=== PATIENT | male | born 1945 | race Caucasian/White ===

== ENCOUNTER 2024-03-14 12:21 | Inpatient (IN) | payer MEDICARE, OTHER, SELFPAY ==
[2024-03-14] VITALS (15 sets, daily range): BP systolic 110–158; BP diastolic 75–104; PULSE 65–107; RESP 16–27; TEMP 35.9–36.7; O2SAT 94–98; BMI 29.0
--- NOTE | 2024-03-14 12:40 | EKG_ITS ---
[address] [address] Test Date: 2024-03-14 Pat Name: Landon Cole Department: [facility] Room: Gender: Male [employer] Mixer: KELLIE : 1945 Requested By: Order Number: [id number] Reading MD: Remy David Measurements Intervals [place] Rate: 92 P: OR: QRS: -62 QRSD: 112 T: 33 QT: 392 QTc: 484 Interpretive Statements Atrial fibrillation with premature ventricular or aberrantly conducted complexes Left anterior fascicular block Septal infarct , age undetermined Electronically Signed On 03-15-2024 8:32:00 PDT by Remy David
--- NOTE | 2024-03-14 12:40 | DI.RAD.S_ITS ---
PROCEDURE: XR CHEST 1V INDICATIONS: Shortness of breath TECHNIQUE: One view of the chest was acquired. COMPARISON: None. FINDINGS: Surgical changes and devices: None. Lungs and pleura: Lungs are clear. No pleural effusions or pneumothorax. Mediastinum: Cardiac silhouette is mildly enlarged. Bones and chest wall: No suspicious bony lesions. Overlying soft tissues appear unremarkable. IMPRESSION: Cardiomegaly. No acute cardiopulmonary abnormality is seen. Approved by: Telly Gibson M.D. on 03/14/2024 at 13:02
[2024-03-14 12:55] LABS: Add Manual Diff / Slide Review NO; Basophils Absolute Auto 100 /uL (0-100); Basophils Percent Auto 0.9 % (0-2); Eosinophils Absolute Auto 100 /uL (0-450); Eosinophils Percent Auto 1.8 % (2-4); Hematocrit 46.6 % (41-53); Hemoglobin 15.8 g/dL (13.5-17.5); Lymphocytes Absolute Auto 800 /uL (1100-4500); Lymphocytes Percent Auto 11.7 % (25-40); Mean Corpuscular HGB Conc 33.8 % (30-36); Mean Corpuscular Hemoglobin 32.2 PG (26-34); Mean Corpuscular Volume 95.3 fL (80-100); Monocytes Absolute Auto 700 /uL (0-900); Monocytes Percent Auto 10.9 % (3-14); Neutrophils Absolute Auto 5000 /uL (1500-7000); Neutrophils Percent Auto 74.7 % (50-75); Platelet Count 256 X10^3/uL (150-400); Red Blood Cell Count 4.89 X10^6/uL (4.5-5.9); White Blood Cell Count 6.8 X10^3/uL (4.5-11.0)
[2024-03-14 13:03] LABS: INR 2.2 (0.9-1.3); Prothrombin Time 24.4 SECONDS (9.4-12.5)
[2024-03-14 13:07] LABS: Lactate (Lactic Acid) 2.7 mmol/L (0.7-2.1)
[2024-03-14 13:08] LABS: Alanine Aminotransferase 33 IU/L (<50); Albumin Globulin Ratio 1.2 (1.0-2.8); Alkaline Phosphatase 193 U/L (38-126); Aspartate Aminotransferase 47 IU/L (17-59); BUN Creatinine Ratio 18.7 (6-22); Bilirubin Total 2.9 mg/dL (0.2-1.3); Blood Urea Nitrogen 23 mg/dL (9-20); Calcium 9.1 mg/dL (8.4-10.2); Carbon Dioxide 22 mmol/L (22-32); Chloride 98 mmol/L (98-107); Estimated Glomerular Filt Rate > 60 mL/min (>60); Globulin 3.3 g/dL (1.7-4.1); Glucose 99 mg/dL (80-110); HEMOLYSIS < 15 (0-50); Potassium 4.5 mmol/L (3.4-5.1); Sodium 130 mmol/L (137-145); Total Protein 7.3 g/dL (6.3-8.2)
[2024-03-14 13:20] LABS: NT-proBNP (BNP-Adult 18+) 14800 pg/mL (<450)
[2024-03-14 13:21] LABS: Troponin I 0.127 ng/mL (0.01-0.034)
--- NOTE | 2024-03-14 13:22 | DI.CT.S_ITS ---
PROCEDURE: CT ANGIO CHEST PE PROTOCOL INDICATIONS: swelling legs, sob, + trop TECHNIQUE: After the administration of intravenous contrast, 2 mm thick sections acquired from the pulmonary apices to the posterior costophrenic angles. 3-dimensional maximum intensity projection (MIP) coronal and sagittal reformats were then acquired through the thorax. For radiation dose reduction, the following was used: automated exposure control, adjustment of mA and/or kV according to patient size. COMPARISON: [facility], CR, XR CHEST 1V, 03/14/2024, 12:43. FINDINGS: Image quality: Mildly limited by bolus timing. There is streak artifact seen through the level of the shoulders. Pulmonary arteries: There is poor opacification seen of several lower lobe pulmonary arteries. Lower Neck: No enlarged lymph nodes. Thyroid: The thyroid is not well seen. Axillae: No enlarged lymph nodes. Chest Wall: Unremarkable. Bones: Age-appropriate bony degenerative changes are seen. Mild dextroconvex scoliotic curvature is seen. Lungs and Pleura: There is a moderate right-sided and mild left-sided pleural effusion. Overlying presumed atelectasis can be seen. No pneumothorax. A mild degree of generalized ground-glass opacity can be seen within the lungs. Heart: Heart size is moderately enlarged, with enlargement of the right heart. No pericardial effusion. At least moderate coronary artery calcification can be seen. Thoracic Vessels: No aortic aneurysm. Mediastinum and Arianne: No enlarged lymph nodes. Esophagus: No wall thickening. No hiatal hernia. Upper Abdomen: There is reflux of contrast seen into the inferior vena cava and into the hepatic veins. A mild amount of ascites can be seen within the upper abdomen. The visualized portions of the upper abdominal structures are otherwise unremarkable for imaging technique. IMPRESSION: Poor opacification seen involving several lower lobe pulmonary arteries. This is attributed to flow artifact. Pulmonary embolism is considered to be less likely based upon the imaging appearance. - If clinically appropriate, please consider a repeat exam in 24 hours. Bilateral pleural effusions are seen, right larger than left. A mild degree of generalized ground-glass opacity can be seen. There is also cardiomegaly seen, with reflux of contrast seen into the inferior vena cava and into the hepatic veins. CHF is suspected based upon these imaging findings. A mild amount of upper abdominal ascites can be seen. Additional findings: Coronary artery calcification Dictated by: Wellington Feliciano M.D. on 03/14/2024 at 13:14 Approved by: Wellington Feliciano M.D. on 03/14/2024 at 13:19
[2024-03-14 14:12] LABS: Urine Volume 10mL (spun)
[2024-03-14 14:18] LABS: Bacteria Urine None Seen; Culture Indicated Urine Cult Not Indicated; RBC Urine None Seen (0-5/HPF); Squamous Epithelial Cell Urine None Seen (0-5/HPF); WBC Urine None Seen (0-5/HPF)
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
[2024-03-14 14:26] LABS: Reflexed Lactate in 2 Hours Y
[2024-03-14 14:55] LABS: Lactate 2HR (Lactic Acid Rflx) 2.3 mmol/L (0.7-2.1)
--- NOTE | 2024-03-14 14:55 | DI.ECHO.S_ITS ---
[facility] : : [address] : : [place] : : [id number] : : Phone: [phone] Echocardiogram Report + + :Name: FRANCISCA DOBBS Study Date: 03/14/2024 Height: 71 in : :Hospital ReadingLocation: Weight: 202 lb : : Gender: Male BSA: 2.1 m2 : :: 1945 Age: 78 yrs BP: 158/75 mmHg: :Reason For Study: CONGESTIVE HEART FAILURE, MURMUR : :Ordering Physician: AYLA, : :MARINA Performed By: Estela Faye : :Referring: MARINA AGUILA : + + Interpretation Summary There is mild-moderate concentric left ventricular hypertrophy. The ejection fraction is estimated to be 10-15%. Diastolic function could not be accurately assessed due to atrial fibrillation. The left atrium is moderately dilated. The right ventricle is moderately dilated. Right ventricular systolic function is moderately reduced. The right atrium is severely dilated. There is moderate mitral regurgitation. There is low-flow, low gradient severe aortic stenosis. There is mild aortic regurgitation. The right ventricular systolic pressure is estimated to be at least 50 mmHg based on an estimated right atrial pressure of 15 mm Hg. There is a moderate left-sided pleural effusion. Procedure: A two-dimensional transthoracic echocardiogram with color flow and Doppler was performed. The study quality was technically adequate. There is no prior echocardiogram noted for this patient. The patient was in atrial fibrillation with heart rates between 75-100 bpm during the exam. Left Ventricle: The left ventricle is normal in size. There is mild-moderate concentric left ventricular hypertrophy. The ejection fraction is estimated to be 10-15%. Diastolic function could not be accurately assessed due to atrial fibrillation. Right Ventricle: The right ventricle is moderately dilated. A moderator band is seen in the right ventricle. Right ventricular systolic function is moderately reduced. Atria: The left atrium is moderately dilated. The right atrium is severely dilated. There is no Doppler evidence for an interatrial shunt. Mitral Valve: The mitral valve leaflets appear moderately thickened, but open well. There is moderate mitral regurgitation. Aortic Valve: The aortic valve is severely calcified. There is severely reduced leaflet mobility. The peak aortic velocity is 3.3 m/sec. The aortic valve mean gradient is 25 mmHg. The dimensionless index is 0.17. The calculated aortic valve area is 0.69 cm2. There is severe aortic stenosis. There is mild aortic regurgitation. Tricuspid Valve: Tricuspid leaflets are thickened. There is moderate tricuspid regurgitation. The right ventricular systolic pressure is estimated to be at least 50 mmHg based on an estimated right atrial pressure of 15 mm Hg. Pulmonic Valve: The pulmonic valve leaflets are thin and pliable; valve motion is normal. There is a trace or physiologic amount of pulmonic regurgitation. Great Vessels: The aortic root is normal size. The dimensions of the ascending aorta are normal. The IVC is dilated (diameter is greater than 2.1 cm) and it collapses less than 50% with a sniff. This suggests a high right atrial pressure of 15 mm Hg. Pericardium/ Pleura There is no pericardial effusion. There is a moderate left-sided pleural effusion. MMode/2D Measurements & Calculations LVIDd: 5.3 cm LVOT diam: 2.4 cm LVIDs: 4.8 cm Ao root diam: 3.4 cm FS: 8.9 % asc Aorta Diam: 3.7 cm EPSS: 0.88 cm Ao Arch Diam (Prox Trans): 2.8 cm IVSd: 1.2 cm LVPWd: 1.3 cm LV delgado. diameter/BSA (cm/m^2): 2.5 LV sys. diameter/BSA (cm/m^2): 2.3 LA A2 area: 30.7 cm2 RA long axis: 6.4 cm LA A4 area: 23.6 cm2 RA area: 26.6 cm2 LA length (vol): 6.6 cm RA vol: 94.2 ml LA vol: 92.8 ml RA : 44.5 ml/m2 LA vol index: 43.8 ml/m2 IVC diam: 3.1 cm RVD1 (basal): 5.1 cm RVD2 (mid): 3.9 cm TAPSE: 1.7 cm Doppler Measurements & Calculations Ao V2 max: 326.3 cm/sec LVOT Max Raji: 48.9 cm/sec Ao V2 mean: 214.6 cm/sec LV V1 max P.96 mmHg Ao max P.6 mmHg LV V1 VTI: 9.3 cm Ao mean P.6 mmHg KALEB(I,D): 0.81 cm2 Ao V2 VTI: 52.8 cm KALEB(V,D): 0.69 cm2 sev ratio: 0.18 KALEB indexed to BSA (cm^2/m^2): 0.38 AI P1/2t: 832.0 msec AI dec slope: 152.1 cm/sec2 MV E max raji: 64.9 cm/sec TR max raji: 297.9 cm/sec Med Peak E' Raji: 5.4 cm/sec TR max P.5 mmHg E/E' med: 12.1 PA V2 max: 64.8 cm/sec MV dec time: 0.14 sec PA V2 mean: 41.6 cm/sec MR ERO: 0.29 cm2 PA mean P.79 mmHg PA pr(Accel): 48.2 mmHg MR PISA: 5.2 cm2 SV(LVOT): 42.9 ml MR flow rate: 142.1 cm3/sec MR PISA radius: 0.91 cm Reading Physician:05:16 PM
[2024-03-14] MEDS: FUROSEMIDE 40 MG/4 ML VIAL IV (15:09)
--- NOTE | 2024-03-14 16:31 | P.HP_ITS ---
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 He flew to [place] about a month ago in his had leg edema since that time which is progressing. He has also had progressive dyspnea for the past several weeks. He has been given 2 courses of diuretics with minimal improvement. He denies any chest pain or known heart issues. He does try to avoid doctors as much as possible. His primary is Dr. Madrid, in [place]. He denies any chest pain recently. He was had some orthopnea. In the emergency room, chest x-ray indicated pulmonary edema and he was given Lasix and had a very dramatic diuresis and improvement of his symptoms. Echo reveals an EF of 10-15%, no previous echoes are available. He was moderate concentric LVH as well. His right ventricular systolic function is also moderately reduced and he was [id number] regurgitation and mild aortic regurgitation. [facility] Social History household members: family Smoking Status: Never smoker alcohol intake: never Meds Home Medications and Allergies Allergies Allergy/AdvReac Type Severity Reaction Status Date / Time No Known Drug Allergies Allergy Verified 03/14/24 12:37 Review of Systems Review of Systems Narrative: All else reviewed and otherwise unremarkable except as noted in the history and physical. Exam Vital Signs (past 8 hours): - 03/14/24 12:37 03/14/24 13:00 03/14/24 13:06 Temperature 98.1 F Pulse Rate 107 H 93 H 94 H Respiratory Rate 22 16 25 H Blood Pressure 142/102 H 153/99 H Pulse Oximetry 94 97 97 Oxygen Delivery Method Room Air Room Air 03/14/24 13:30 03/14/24 13:30 03/14/24 13:59 Temperature Pulse Rate 81 104 H Respiratory Rate 16 23 Blood Pressure 145/96 H Pulse Oximetry 97 96 Oxygen Delivery Method 03/14/24 13:59 03/14/24 14:00 03/14/24 14:00 Temperature Pulse Rate 99 H Respiratory Rate 27 H Blood Pressure 147/104 H 143/101 H Pulse Oximetry 96 Oxygen Delivery Method 03/14/24 14:30 10/30/24 14:30 03/14/24 15:00 Temperature Pulse Rate 88 91 H Respiratory Rate 21 23 Blood Pressure 149/100 H Pulse Oximetry 96 97 Oxygen Delivery Method 03/14/24 15:00 03/14/24 15:23 03/14/24 15:23 Temperature Pulse Rate 103 H Respiratory Rate 24 Blood Pressure 140/94 H 158/75 H Pulse Oximetry 97 Oxygen Delivery Method 03/14/24 15:30 03/14/24 15:30 Temperature Pulse Rate 89 Respiratory Rate 17 Blood Pressure 151/90 H Pulse Oximetry 96 Oxygen Delivery Method Room Air Oxygen Delivery Method Room Air Narrative Exam Narrative: NAD, alert and oriented, fluent speech, calm. Normocephalic skull, EOMI, anicteric sclera, symmetric pupils. Oropharynx unremarkable, no droop. Neck supple, midline trachea, no adenopathy. Lungs with basilar rales, normal rate and effort. Heart regular, no murmur gallop or rub. Abdomen is soft, non distended and non tender. Extremities: Gross bilateral edema Skin is free of rash or lesions. Joints are not swollen or deformed. Judgment appears to be normal. Objective ECG Impression: Atrial fibrillation with premature ventricular or aberrantly conducted complexes Left anterior fascicular block Septal infarct , age undetermined Imaging CT scan - chest: Radiologist's impression: Poor opacification seen involving several lower lobe pulmonary arteries. This is attributed to flow artifact. Pulmonary embolism is considered to be less likely based upon the imaging appearance. - If clinically appropriate, please consider a repeat exam in 24 hours. Bilateral pleural effusions are seen, right larger than left. A mild degree of generalized ground-glass opacity can be seen. There is also cardiomegaly seen, with reflux of contrast seen into the inferior vena cava and into the hepatic veins. CHF is suspected based upon these imaging findings. A mild amount of upper abdominal ascites can be seen. Additional findings: Coronary artery calcification Chest x-ray: Radiologist's impression: Cardiomegaly. No acute cardiopulmonary abnormality is seen. Echo: Radiologist's impression: There is mild-moderate concentric left ventricular hypertrophy. The ejection fraction is estimated to be 10-15%. Diastolic function could not be accurately assessed due to atrial fibrillation. The left atrium is moderately dilated. The right ventricle is moderately dilated. Right ventricular systolic function is moderately reduced. The right atrium is severely dilated. There is moderate mitral regurgitation. There is low-flow, low gradient severe aortic stenosis. There is mild aortic regurgitation. The right ventricular systolic pressure is estimated to be at least 50 mmHg based on an estimated right atrial pressure of 15 mm Hg. There is a moderate left-sided pleural effusion. Labs 03/14/24 12:43 03/14/24 12:43 Labs: Laboratory Results - last 24 hr 03/14/24 03/14/24 03/14/24 12:43 13:55 14:33 WBC 6.8 RBC 4.89 Hgb 15.8 Hct 46.6 MCV 95.3 MCH 32.2 MCHC 33.8 RDW 17.0 H Plt Count 256 Neut % (Auto) 74.7 Lymph % (Auto) 11.7 L [place] % (Auto) 10.9 Eos % (Auto) 1.8 L Baso % (Auto) 0.9 Neut # (Auto) 5000 Lymph # (Auto) 800 L [place] # (Auto) 700 Eos # (Auto) 100 Baso # (Auto) 100 PT 24.4 H INR 2.2 H Sodium 130 L Potassium 4.5 Chloride 98 Carbon Dioxide 22 BUN 23 H Creatinine 1.23 Estimated GFR > 60 BUN/Creatinine Ratio 18.7 Glucose 99 Lactate 2.7 H 2.3 H Calcium 9.1 Total Bilirubin 2.9 H AST 47 ALT 33 Alkaline Phosphatase 193 H Troponin I 0.127 H* NT-Pro-B Natriuret Pep 92122 H Total Protein 7.3 Albumin 4.0 Globulin 3.3 Albumin/Globulin Ratio 1.2 Urine RBC None seen Urine WBC None seen Ur Squamous Epith Cells None seen Urine Bacteria None seen Ur Culture Indicated? Cult not indicated Vol Urine Centrifuged 10ml (spun) 03/14/24 14:34 WBC RBC Hgb Hct MCV MCH MCHC RDW Plt Count Neut % (Auto) Lymph % (Auto) [place] % (Auto) Eos % (Auto) Baso % (Auto) Neut # (Auto) Lymph # (Auto) [place] # (Auto) Eos # (Auto) Baso # (Auto) PT INR Sodium Potassium Chloride Carbon Dioxide BUN Creatinine Estimated GFR BUN/Creatinine Ratio Glucose Lactate Calcium Total Bilirubin AST ALT Alkaline Phosphatase Troponin I 0.120 H NT-Pro-B Natriuret Pep Total Protein Albumin Globulin Albumin/Globulin Ratio Urine RBC Urine WBC Ur Squamous Epith Cells Urine Bacteria Ur Culture Indicated? Vol Urine Centrifuged Assessment & Plan Assessment & Plan narrative: 1. Acute systolic heart failure with a very depressed EF of 10-15%, present on admission and active. 2. Atrial fibrillation, present on admission and active. 3. Autoimmune dermatitis, present on admission and active. 4. Chronic immune suppression, present on admission and active. 5. Chronic anticoagulation, present on admission and active. PLAN: -diuresis -telemetry -rate control -ECHO to assess LVEF -trend troponins -discuss with Cardiology -we will start low dose of beta blockade tomorrow as well as lisinopril. Full code MADELIN: 03/16 Inpatient status, anticipate a 2 [place] hospital stay. Time-Based Coding :: 35 min spent with patient and on the chart (including review of chart, obtaining history, exam, reviewing outside data, placing orders, documenting exam and treatment plan, and counseling patient) on 03/14. Quality MIPS - Admit The patient?s Advance Care plan is not present because I confirmed today that the patient does not wish or was not able to name a surrogate decision maker or provide an Advance Care Plan.: Yes MIPS - Meds 'Current medications' to include all prescriptions, [id number] products, herbals, cannabis/cannabidiol products, and vitamin/mineral/dietary (nutritional) supplements. I have utilized all available resources to obtain, update, or review the patient?s current medications. [If Yes, STOP here]: Yes
--- NOTE | 2024-03-14 18:49 | PC.NURSE ---
Pt to room 219 from ER. Pt is very hard of hearing and his son is taking his hearing aids home to charge them. Pt denies pain, nausea, chest pain or shortness of breath. Pt states he is already feeling much better than he has for the past several weeks. Pt oriented to room, call light, bed controls and tv controls. Pt up to bathroom to void-steady on his feet and has no history of falls and uses no cane or walker. Pt agrees to call for assistance as needed and to not get up without calling. Pt agrees.
[2024-03-14] MEDS: APIXABAN 5 MG TABLET PO (20:30)
[2024-03-14 20:43] LABS: Troponin I 0.126 ng/mL (0.01-0.034)
[2024-03-15] VITALS (7 sets, daily range): BP systolic 107–139; BP diastolic 67–93; PULSE 53–96; RESP 16–20; TEMP 36.4–36.8; O2SAT 93–97
[2024-03-15 05:10] LABS: Hematocrit 40.1 % (41-53); Hemoglobin 13.7 g/dL (13.5-17.5); Mean Corpuscular Hemoglobin 32.5 PG (26-34); Mean Corpuscular Volume 95.6 fL (80-100); Platelet Count 225 X10^3/uL (150-400); Red Cell Distribution Width 17.2 % (11.6-14.8)
[2024-03-15 05:22] LABS: BUN Creatinine Ratio 18.7 (6-22); Blood Urea Nitrogen 25 mg/dL (9-20); Calcium 8.8 mg/dL (8.4-10.2); Carbon Dioxide 26 mmol/L (22-32); Chloride 99 mmol/L (98-107); Estimated Glomerular Filt Rate 55 mL/min (>60); Glucose 96 mg/dL (80-110); HEMOLYSIS < 15 (0-50); Potassium 4.8 mmol/L (3.4-5.1); Sodium 130 mmol/L (137-145)
[2024-03-15] MEDS: FUROSEMIDE 40 MG/4 ML VIAL IV ×2 (05:45→17:15)
--- NOTE | 2024-03-15 07:26 | PM.PN.1 ---
Subjective Subjective Interval history: Summary: The patient was a 78-year-old male with a history of chronic atrial fibrillation on Eliquis and a chronic heart murmur. He also has an autoimmune skin disorder. He presents with progressive leg edema and dyspnea for 4 weeks. Echo on the day of admission revealed a global hypokinesis with LVH and an EF of 10-15%. No recent echos are available. He was seen by a take out waiter [facility]. Subjective: Less short of breath, less edema. He still does have a lot of edema. No chest pain. He did have elevated troponins, minimally overnight. Exam Vital Signs (past 8 hours): - 03/15/24 00:09 03/15/24 04:28 Temperature 97.5 F L 98.3 F Pulse Rate 88 53 L Respiratory Rate 16 16 Blood Pressure 131/85 139/93 H Pulse Oximetry 95 93 Oxygen Delivery Method Room Air Narrative Exam Narrative: NAD, alert and oriented. Fluent speech. Lungs are clear, normal rate and effort. Heart is regular, no murmur gallop or rub. Abdomen is soft, non distended. Extremities are free of edema. Objective ECG Impression: Atrial fibrillation with premature ventricular or aberrantly conducted complexes Left anterior fascicular block Septal infarct , age undetermined Imaging Multiple studies:: Radiologist's impression: Chest x-ray: Radiologist's impression: Cardiomegaly. No acute cardiopulmonary abnormality is seen. Echo: Radiologist's impression: There is mild-moderate concentric left ventricular hypertrophy. The ejection fraction is estimated to be 10-15%. Diastolic function could not be accurately assessed due to atrial fibrillation. The left atrium is moderately dilated. The right ventricle is moderately dilated. Right ventricular systolic function is moderately reduced. The right atrium is severely dilated. There is moderate mitral regurgitation. There is low-flow, low gradient severe aortic stenosis. There is mild aortic regurgitation. The right ventricular systolic pressure is estimated to be at least 50 mmHg based on an estimated right atrial pressure of 15 mm Hg. There is a moderate left-sided pleural effusion. Labs 03/15/24 04:54 03/15/24 04:54 Labs: Laboratory Results - last 24 hr 03/14/24 03/14/24 03/14/24 12:43 13:55 14:33 WBC 6.8 RBC 4.89 Hgb 15.8 Hct 46.6 MCV 95.3 MCH 32.2 MCHC 33.8 RDW 17.0 H Plt Count 256 Neut % (Auto) 74.7 Lymph % (Auto) 11.7 L [place] % (Auto) 10.9 Eos % (Auto) 1.8 L Baso % (Auto) 0.9 Neut # (Auto) 5000 Lymph # (Auto) 800 L [place] # (Auto) 700 Eos # (Auto) 100 Baso # (Auto) 100 PT 24.4 H INR 2.2 H Sodium 130 L Potassium 4.5 Chloride 98 Carbon Dioxide 22 BUN 23 H Creatinine 1.23 Estimated GFR > 60 BUN/Creatinine Ratio 18.7 Glucose 99 Lactate 2.7 H 2.3 H Calcium 9.1 Total Bilirubin 2.9 H AST 47 ALT 33 Alkaline Phosphatase 193 H Troponin I 0.127 H* NT-Pro-B Natriuret Pep 16228 H Total Protein 7.3 Albumin 4.0 Globulin 3.3 Albumin/Globulin Ratio 1.2 Urine RBC None seen Urine WBC None seen Ur Squamous Epith Cells None seen Urine Bacteria None seen Ur Culture Indicated? Cult not indicated Vol Urine Centrifuged 10ml (spun) 03/14/24 03/14/24 03/15/24 14:34 20:00 04:54 WBC 7.0 RBC 4.20 L Hgb 13.7 Hct 40.1 L MCV 95.6 MCH 32.5 MCHC 34.0 RDW 17.2 H Plt Count 225 Neut % (Auto) Lymph % (Auto) [place] % (Auto) Eos % (Auto) Baso % (Auto) Neut # (Auto) Lymph # (Auto) [place] # (Auto) Eos # (Auto) Baso # (Auto) PT INR Sodium 130 L Potassium 4.8 Chloride 99 Carbon Dioxide 26 BUN 25 H Creatinine 1.34 H Estimated GFR 55 L BUN/Creatinine Ratio 18.7 Glucose 96 Lactate Calcium 8.8 Total Bilirubin AST ALT Alkaline Phosphatase Troponin I 0.120 H 0.126 H* NT-Pro-B Natriuret Pep Total Protein Albumin Globulin Albumin/Globulin Ratio Urine RBC Urine WBC Ur Squamous Epith Cells Urine Bacteria Ur Culture Indicated? Vol Urine Centrifuged [facility] Social History household members: family Smoking Status: Never smoker alcohol intake: never Assessment & Plan Assessment & Plan narrative: 1. Acute systolic heart failure with a very depressed EF of 10-15%, present on admission and active. 2. Dilated cardiomyopathy of unclear cause, present on admission and active. Could be ischemic. 3. Elevated troponin, present on admission and active. 4. Atrial fibrillation, present on admission and active. 5. Autoimmune dermatitis, present on admission and active. 6. Chronic immune suppression, present on admission and active. 7. Chronic anticoagulation, present on admission and active. PLAN: -diuresis -telemetry -rate control -trend troponins -discuss with Cardiology (More Luna). Appt with Dr Luna 04/09. -we will start low dose of beta blockade tomorrow as well as lisinopril. -I recommend a LifeVest for protection against cardiac arrest given his extremely low ejection fraction and high risk for ventricular arrhythmia or cardiac arrest. Patient agrees with this measure. Also discussed with take out waiter. Full code MADELIN: 03/16 Inpatient status, anticipate a 2 [place] hospital stay. Time-Based Coding :: [TOTAL MINUTES] spent with patient and on the chart (including review of chart, obtaining history, exam, reviewing outside data, placing orders, documenting exam and treatment plan, and counseling patient) on [DATE].
[2024-03-15] MEDS: APIXABAN 5 MG TABLET PO ×2 (08:16→21:35)
--- NOTE | 2024-03-15 08:36 | PT-IP ANOTE ---
PT consult received. PT reviewed chart and spoke with MD and checked on pt. Pt eating breakfast. He is very [place]. Will check back for PT assessment.
[2024-03-15 10:53] LABS: Troponin I 0.147 ng/mL (0.01-0.034)
--- NOTE | 2024-03-15 13:27 | PT.IIE ---
Current Diagnoses Acute systolic (congestive) heart failure (03/14/24) Physical Therapy Inpatient Evaluation/Re-Eval M1 PT/OT-IP Prior Functional Status Start: 03/15/24 08:26 Freq: NEEDED Status: Active Protocol: Document 03/15/24 12:52 MB (Rec: 03/15/24 13:27 [id number]) Medical Review Prior Functional Status Medical History Reviewed Yes Communication Unsure baseline diet and pt coughs after finishing lunch Mobility and Gait I Activities of Daily Living and IADL's I, drives Social History Household Members family Living Arrangements House Number of Floors (Floors) One Floor Number of Stairs To Enter/Railing? 1 step and no rail to enter Home Environment Standard Height Toilet,High Toilet,Walk in Shower,Tub/ Shower Home Equipment Hand Held Shower,Grab Bars In Shower Employment Status Retired M2 PT-IP Current Condition Start: 03/15/24 08:26 Freq: NEEDED Status: Active Protocol: Document 03/15/24 12:52 MB (Rec: 03/15/24 13:27 [id number]) Physical Therapy Current Condition Current Condition Evaluation Date 03/15/24 Treatment Diagnosis SOB, swelling LEs M3 PT-IP Subjective Start: 03/15/24 08:26 Freq: NEEDED Status: Active Protocol: Document 03/15/24 12:52 MB (Rec: 03/15/24 13:27 [id number]) Subjective Physical Therapy Visit Type Type Initial Evaluation Visit Start Time 12:52 Visit Stop Time 13:17 Number of PATTERN PAINTER Visits 0 Physical Therapy Visit Comments Patient Comments Do you work for the [employer]? I don't want the [employer] to come to my house ! Are you going to throw those notes out? Pt often angry and somewhat hostile to PT and con't ask questions about where PT works and what PT is doing with information and son also is questioning PT. giggles throughout interview. PT con't to educate pt and family that PT works for [employer] and is performing PT assessment to determine discharge recommendations. Pt refuses gait belt for mobility. Therapy Pain Assessment Pain When Pain Assessed At Rest Pain Present Pain Present Denied Pain M4 PT-IP Mobility and Gait Start: 03/15/24 08:26 Freq: NEEDED Status: Active Protocol: Document 03/15/24 12:52 MB (Rec: 10/31/24 13:27 MB [id number]) PT-Bed Mobility Assessment Supine to Sit Supine to Sit Standby Assistance,1 Person Assistance,Head of Bed Elevated Sit to Supine Sit to Supine Standby Assistance,1 Person Assistance,Head of Bed Elevated,Bedrails Scooting Scooting to Edge of Bed Standby Assistance PT-Transfer Assessment Sit to and From Stand Sit to and from Stand Standby Assistance Equipment Transfer Assistive Device None Orthotic/Prosthetic Devices or Brace: No Transfers Transfer Destination Bed,Toilet Transfer Technique Ambulation Transfer Ability Level of Assist Standby Assistance Comments Mobility Comments BP and HR in RUE: supine with HOB increased in bed: 133/85, 83; standing 125/88, 90. Pt states he never gets light- headed. Gait Assessment Gait Gait Assistance Required: Standby Assistance Distance (Feet) 100 Able to Maintain Weight Bearing Status Yes During Gait Assistive Devices Assistive Device None Orthotic/Prosthetic Devices or Brace: No Gait Deviations General Gait Pattern Wide Based Gait Factors Limiting Gait Function Factors Limiting Gait Function Poor Safety Awareness Comments Gait Comments Pt with mild ROBLES per observation that he denies when PT mentions Stair Climbing Assessment Evaluation Level of Assist On Stairs Standby Assistance Devices Stair Climbing Assistive Devices Left Railing Technique/Endurance Stair Climbing Direction Ascend Stair Climbing Technique Step to Step Number of Steps Climbed 1 Query Text: Stair Climbing Set # Repetitions (reps) 1 PT-Balance Assessment Sitting Balance and Reactions Static Sitting Balance Ability Good Dynamic Sitting Balance Ability Good Standing Balance and Reactions Static Standing Balance Ability Good Dynamic Standing Balance Ability Fair Device Used None M5 PT-IP Objective Assessments Start: 03/15/24 08:26 Freq: NEEDED Status: Active Protocol: Document 03/15/24 12:52 MB (Rec: 03/15/24 13:27 MB [id number]) Orientation Orientation/Cognition Level of Alertness Alert Orientation Name,Age,Birthday,Month,Date, Year,Day of Week,Place, Situation Language Function Ability Hard of Hearing Safety Awareness Decreased Safety Awareness Memory Description No Deficits Noted Gross Range of Motion Upper Extremity ROM Assessment Within Functional Limits Lower Extremity ROM Assessment Within Functional Limits Strength Upper Extremity Strength Assessment Within Functional Limits Lower Extremity Strength Assessment Within Functional Limits Comments Strength Comments Pt does not tolerate ROM, MMT, sensory or coordination testing. He presents with B LE edema M7 PT-IP Assessment and Plan Start: 03/15/24 08:26 Freq: NEEDED Status: Active Protocol: Document 03/15/24 12:52 MB (Rec: 03/15/24 13:27 MB [id number]) PT Summary Assessment and Plan Potential Rehabilitation Potential Poor Status of Condition at Evaluation Evolving Summary Impairments Activity Tolerance Assessment Summary Pt is a 78 y/o male adm with SOB and LE edema. He is [place] and quite hostile towards PT and family is also not understanding that PT works for [employer] and they are not receptive to PT educating them about PT role, assessment and recommendations . Pt states many times that he does not want the government involved, is worried where PT is putting notes about DME and PLOF. He is adamant about PT not touching him or using gait belt. also sits nearby and has some giggling. Pt is SBA to superv level for gait to BR, in hallway and one step mobility. Will d/c PT. Recommend not ordering further therapies in order to respect pt and family's concerns and wishes. Of note, pt does cough often after eating lunch. Recommend d/c home with family . Frequency of Treatment Frequency Of Treatment Discharge Discharge Recommendations PT Discharge Recommendations Home with Assistance Transportation Needs at Discharge Private Vehicle
--- NOTE | 2024-03-15 15:18 | CM.DANOTE ---
DCP Assessment Note Pt is a 78yo [place] with CHF. PCP Dr. Madrid Payer Medicare and [employer] dimensions ROTARY VENEER MACHINE OPERATOR reviewed EMR. per hospitalist in morning rounds, anticipate dc tomorrow with lifevest. Per provider PN, cardiology f/u already scheduled with Dr. Luna on 04/09. discharged PT due to pt not wanting to work with PT, see PT note for more. ROTARY VENEER MACHINE OPERATOR met with pt, spouse, and son Slade in room and introduced self and role. pt reports living with spouse in [place], indep at baseline. ROTARY VENEER MACHINE OPERATOR answered spouse's questions to best of ability. pt/spouse deny any CM/DCP needs at this time. P: home with family to transport at dc. f/u with OP cardiology/PCP. no identified barriers to safe dc home at this time. CM team will continue to follow as needed MARIO ALBERTO Griffiths Discharge Planning/Care Management CM Discharge Assessment Start: 03/15/24 15:17 Freq: Status: Active Protocol: Document 03/15/24 15:17 SL (Rec: 03/15/24 15:18 [id number]) Discharge Planning Assessment Assigned Ax Survey Worker MARIO ALBERTO Cronin DPOA/Assigned Designee Name carlos Ann Contact Information [phone] Advance Directives? No History Provided By Patient Prior Living Arrangements House Household Members family Type of transporation used prior to Drives own vehicle admit Independent with ADL's Yes Is patient alert and oriented? Yes Discharge Plan Home Transportation Arrangement family in POV Referrals Initiated None needed Whiteboard Updated in Patient Room with Yes name and ext. # of Ax Survey Worker Review Status In Process Please Provide Date Initial DC 03/15/24 Assessment Was Performed Next Review Type Continued Stay Review
[2024-03-16 03:00] VITALS: BP 111/80; PULSE 84; RESP 18; TEMP 36.2; O2SAT 98
[2024-03-16 05:04] LABS: Hematocrit 42.2 % (41-53); Hemoglobin 14.2 g/dL (13.5-17.5); Mean Corpuscular HGB Conc 33.7 % (30-36); Platelet Count 237 X10^3/uL (150-400); Red Blood Cell Count 4.44 X10^6/uL (4.5-5.9); Red Cell Distribution Width 17.2 % (11.6-14.8); White Blood Cell Count 7.4 X10^3/uL (4.5-11.0)
[2024-03-16 05:20] LABS: BUN Creatinine Ratio 22.1 (6-22); Blood Urea Nitrogen 29 mg/dL (9-20); Calcium 8.9 mg/dL (8.4-10.2); Carbon Dioxide 24 mmol/L (22-32); Chloride 100 mmol/L (98-107); Estimated Glomerular Filt Rate 56 mL/min (>60); Glucose 96 mg/dL (80-110); HEMOLYSIS < 15 (0-50); Potassium 4.1 mmol/L (3.4-5.1); Sodium 133 mmol/L (137-145)
[2024-03-16] MEDS: FUROSEMIDE 40 MG/4 ML VIAL IV (05:45)
[2024-03-16 08:00] VITALS: BP 144/95; PULSE 64; RESP 17; TEMP 36.1; O2SAT 98
[2024-03-16] MEDS: APIXABAN 5 MG TABLET PO (09:44)
[2024-03-16] MEDS: FOLIC ACID 1 MG TABLET PO (09:44)
--- NOTE | 2024-03-16 11:43 | CM.DPNOTE ---
DCP Note DECAY CONTROL OPERATOR reviewed EMR. Per hospitalist in morning rounds, dc today with lifevest. Per RN lead Stephanie, lifevests are coordinated through hospitalist/RN coordinator and they are typically done very quickly. Per chart/morning rounds, no new CM needs identified at this time. P: home with family to transport at dc with lifevest. f/u with OP cardiology(already scheduled)/PCP. no identified barriers to safe dc home at this time. CM team will continue to follow as needed MARIO ALBERTO Griffiths
--- NOTE | 2024-03-16 14:05 | P.DS_ITS ---
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 He flew to [place] about a month ago in his had leg edema since that time which is progressing. He has also had progressive dyspnea for the past several weeks. He has been given 2 courses of diuretics with minimal improvement. He denies any chest pain or known heart issues. He does try to avoid doctors as much as possible. His primary is Dr. Madrid, in [place]. He denies any chest pain recently. He was had some orthopnea. In the emergency room, chest x-ray indicated pulmonary edema and he was given Lasix and had a very dramatic diuresis and improvement of his symptoms. Echo reveals an EF of 10-15%, no previous echoes are available. He was moderate concentric LVH as well. His right ventricular systolic function is also moderately reduced and he was [id number]-jucvoicz regurgitation and mild aortic regurgitation. Discharge Providers Provider Date of admission: 03/14/24 16:07 Discharge Date: 03/16/24 Consults: 03/14/24 16:19 Consult to Physical Therapy Evaluate & Treat Comment: Physician Instructions: Evaluate and Treat Discharge provider: Peterson Finley MD Summary Hospital Course Discharge Diagnosis: 1. Acute systolic heart failure with a very depressed EF of 10-15% 2. Dilated cardiomyopathy of unclear cause, possibly ischemic. 3. Elevated troponin, present on admission. 4. Atrial fibrillation. 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 7. Chronic anticoagulation. Hospital Course: The patient was admitted and underwent intravenous diuresis with IV furosemide, reporting significant improvement in breathing and lower extremity edema within the 1st day of admission. Echocardiography results reviewed demonstrating severe dilated cardiomyopathy. He was offered a defibrillator life vest during his hospitalization given his high risk of sudden due to his underlying cardiomyopathy, with the diesel maintenance technician presenting and offering to supply the vest prior to discharge. The patient declined, stating that he would not wear the vast, as he did not feel he would tolerate it, and also fill jesenia velarde did not wish to wear this device. However he did express that he would wish full treatment in the event of cardiac arrest, simply not to this degree. He states interest in outpatient cardiology follow-up as had been arranged prior to admission. He was discharged on oral furosemide with additional medications deferred given relative resting bradycardia and the patient's decision clinician to additional therapies at this time. He wishes to consider and discuss in outpatient primary care follow-up and Cardiology consultation with Dr. Landon Luna. Status at Discharge Cognitive/behavioral status at discharge: oriented Functional status at discharge: independent ambulation Overall status at discharge: patient is progressing back to baseline Exam Vital Signs (past 8 hours): - 03/16/24 07:50 03/16/24 08:00 Temperature 97.0 F L Pulse Rate 64 Respiratory Rate 17 Blood Pressure 144/95 H Pulse Oximetry 98 Oxygen Delivery Method Room Air Oxygen Flow Rate 0 Oxygen Delivery Method Room Air Oxygen Flow Rate 0 Narrative Exam Narrative: NAD, alert and oriented. Fluent speech. Lungs are clear, normal rate and effort. Heart is regular, no murmur gallop or rub. Abdomen is soft, non distended. Extremities are free of edema. Objective Imaging +: Radiologist's impression: 1. Chest x-ray 03/14/2024: Cardiomegaly. No acute cardiopulmonary abnormality is seen. 2. Chest CT angiography 03/14/2024: Poor opacification seen involving several lower lobe pulmonary arteries. This is attributed to flow artifact. Pulmonary embolism is considered to be less likely based upon the imaging appearance. - If clinically appropriate, please consider a repeat exam in 24 hours. Bilateral pleural effusions are seen, right larger than left. A mild degree of generalized ground-glass opacity can be seen. There is also cardiomegaly seen, with reflux of contrast seen into the inferior vena cava and into the hepatic veins. CHF is suspected based upon these imaging findings. A mild amount of upper abdominal ascites can be seen. Additional findings: Coronary artery calcification 3. Echocardiogram 03/14/2024: There is mild-moderate concentric left ventricular hypertrophy. The ejection fraction is estimated to be 10-15%. Diastolic function could not be accurately assessed due to atrial fibrillation. The left atrium is moderately dilated. The right ventricle is moderately dilated. Right ventricular systolic function is moderately reduced. The right atrium is severely dilated. There is moderate mitral regurgitation. There is low-flow, low gradient severe aortic stenosis. There is mild aortic regurgitation. The right ventricular systolic pressure is estimated to be at least 50 mmHg based on an estimated right atrial pressure of 15 mm Hg. There is a moderate left-sided pleural effusion. Labs 03/16/24 04:25 03/16/24 04:25 Labs: Laboratory Results - last 24 hr 03/16/24 04:25 WBC 7.4 RBC 4.44 L Hgb 14.2 Hct 42.2 MCV 95.0 MCH 32.0 MCHC 33.7 RDW 17.2 H Plt Count 237 Sodium 133 L Potassium 4.1 Chloride 100 Carbon Dioxide 24 BUN 29 H Creatinine 1.31 H Estimated GFR 56 L BUN/Creatinine Ratio 22.1 H Glucose 96 Calcium 8.9 PFSH Social History household members: family Smoking Status: Never smoker alcohol intake: never Discharge Plan Discharge Plan Patient Disposition: Home Provider Discharge Comment: Followup with Dr. Madrid within 1 week, Dr. Luna as planned; [facility] to be arranged prior to discharge (declined by patient) Discharge orders & Medications Prescriptions: New furosemide 40 mg tablet 40 mg PO DAILY Qty: 30 0RF Continued cyclosporine 100 mg capsule 100 mg PO BID Eliquis 5 mg tablet 5 mg PO BID methotrexate sodium 2.5 mg tablet 15 mg PO WEEKLY Rx Instructions: takes on folic acid 1 mg tablet 1 mg PO 6XW Rx Instructions: No folic acid to be taken with methotrexate-takes all other days of the weeks except Visit Report/Discharge Packet Instructions: Furosemide Stand Alone Forms: Congestive Heart Failure, Patient Portal/API, Stroke Signs & Symptoms Quality MIPS - Admit I confirm the patient?s Advance Care Plan is present, Code status is documented, Surrogate decision maker is in patient?s record [If Yes, STOP here]: Yes MIPS - Meds 'Current medications' to include all prescriptions, bdpy-tap-feouukz products, herbals, cannabis/cannabidiol products, and vitamin/mineral/dietary (nutritional) supplements. I have utilized all available resources to obtain, update, or review the patient?s current medications. [If Yes, STOP here]: Yes MIPS - DC The patient has a history of heart transplant or Left Ventricular Assist Device (LVAD). If yes, STOP here.: No The patient has current or prior documentation of left ventricular ejection fraction (LVEF) less than or equal to 40%, or moderate or severely depressed left ventricular systolic function.: Yes A. The patient was prescribed or already taking an Angiotensin-Converting Enzyme (ELIZA) Inhibitor, or Angiotensin Receptor Renuka (ARB).: No B. The patient was prescribed or already taking a beta-renuka. [If Yes to Both A & B, STOP here]: No Patient not prescribed/taking ELIZA or ARB for medical/patient reason(s) including (ex: allergy, intolerance, contraindication).: Declined Patient not prescribed/taking Beta-renuka for medical/patient reason(s) including (ex: allergy, intolerance, contraindication).: Bradycardia PROFEE Charge Codes Discharge inpatient/observation: [id number]
== END 2024-03-16 14:08 | disposition home or self-care (01) | DRG 292 ==
LOC: ED 15:42 → AC 16:08
PROVIDERS: Admitting Provider Hospitalist; Emergency Provider Emergency Medicine; Referring Provider Emergency Medicine; Visit Provider Hospitalist
DX: I50.21 Acute systolic (congestive) heart failure (principal); D84.821 Immunodeficiency due to drugs; I42.0 Dilated cardiomyopathy; I48.91 Unspecified atrial fibrillation; L30.8 Other specified dermatitis; R01.1 Cardiac murmur, unspecified; R79.89 Other specified abnormal findings of blood chemistry; Z79.01 Long term (current) use of anticoagulants; Z79.621 Long term (current) use of calcineurin inhibitor
CPT/HCPCS: 36415; 71045; 71275; 80048; 80053; 81003; 81015; 83605; 83880; 84484; 85025; 85027; 85610; 93005; 93306; 96374; 97161; 99285; J1940; Q9967

== ENCOUNTER → 2024-07-25 09:52 | Outpatient (CLI) | payer MEDICARE, OTHER, SELFPAY ==
[2024-03-14 17:47] VITALS: BMI 29.0
--- NOTE | 2024-07-25 | PATH_ITS ---
Note [facility] Accession Number: [id number] TESTS RESULT FLAG UNITS REF RANGE LAB Clinician Provided Cytology Information No. of containers..08 Previously Prepared Cytology Slide 35 Unknown Storage/container code(s) Source: RIGHT THYROID NODULE #2 DIAGNOSIS: RIGHT THYROID NODULE #2 BENIGN. BETHESDA CATEGORY II. SPECIMEN IS HYPOCELLULAR AND CONSISTS OF FEW BENIGN FOLLICULAR CELLS, RARE MACROPHAGES, COLLOID, AND BLOOD. 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 Pathologist ICD10: E04.1 Signed out by: Ann Gonsalves MD, Pathologist NPI- [id number] Performed by: Abdias Bey, [employer] Repairer ([facility]) Gross description: 30 CC, RED, CLEAR RECIEVED: IN CYTOLYT WITH 9 ALCOHOL FIXED AND 9 QUICK STAINED SLIDES ALSO 1 RNA VIAL WILL ON 12-21-2024.VO /VDU 07/26/2024 0626 Local FLAG LEGEND: L-Low Normal,H-High Normal,LL-Alert Low,HH-Alert High <-Panic Low,>-Panic High,A-Abnormal,AA-Critical Abnormal Performed at: 01 =Z [facility] [facility], [place] [address] Shukri Leal MD, Performed at: [address] [facility], [place], [place] [id number] MD Shukri Leal MD Phone: [phone]
--- NOTE | 2024-07-25 09:57 | DI.US.S_ITS ---
PROCEDURE: US FINE NEEDLE ASPIRATION INDICATIONS: RIGHT THYROID NODULE TECHNIQUE: The indications, alternatives, benefits, risks, and complications of the procedure were explained to the patient. Written informed consent was obtained and placed in the chart. The thyroid region was examined sonographically and a site was chosen for ultrasound guided percutaneous sampling. The skin was prepared and draped in the usual fashion, and anesthetized with 1% lidocaine infiltrated from the skin down to the thyroid gland. Multiple passes were then performed, with contents emptied into an appropriate pathology specimen container. A bandage was applied to the area of access at completion of the study. COMPARISON: None. FINDINGS: Location(s) of lesion(s) sampled: Right mid thyroid Odon: 25 gauge hypodermic needles. Number of passes: 9 Medications: 1% lidocaine for local anaesthesia. Complications: None. IMPRESSION: Successful ultrasound-guided thyroid nodule fine needle aspiration, with cytology results pending. Please see chart below for management recommendations based on cytology results. [facility] ReportingRecommendationsNon-diagnostic* Repeat US-guided FNA, with on-site cytology evaluation if possible. * Repeated non-diagnostic nodules without high suspicion US features: close observation vs surgical consult. * Consider surgery if nodule has high suspicion US features, grows >20% in 2 dimensions on followup, or patient has clinical risk factors for malignancy. Benign* If nodule has high suspicion US features: repeat US and FNA within 12 months. * If nodule has low to intermediate suspicion US features: repeat US at 12-24 months. If nodule grows (20% increase in at least 2 dimensions, with minimal increase of 2 mm or >50% change in volume), or development of new suspicious US features, then repeat FNA or continue followup. * If nodule has very low suspicion US features: followup US at >24 months. Atypia of undetermined significance, follicular lesion of undetermined significanceRepeat FNA, molecular testing, followup US, or surgical consult.Follicular neoplasm, suspicious for follicular neoplasmSurgical consult; also consider molecular testing. Suspicious for malignancySurgical consult.MalignantSurgical consult. Dictated by: Jude Youssef M.D. on 07/25/2024 at 14:04 Approved by: Jude Youssef M.D. on 07/25/2024 at 14:05
== END ==
LOC: US 09:54
PROVIDERS: PCP Internal Medicine; Referring Provider Student in an Organized Health Care Education/Training Program; Visit Provider Student in an Organized Health Care Education/Training Program
DX: E04.2 Nontoxic multinodular goiter (principal)
CPT/HCPCS: 10005